=== PATIENT | female | born 1950 | race Caucasian/White ===

== ENCOUNTER 2020-04-16 11:44 | Day surgery (SDC) | payer MEDICARE, SELFPAY ==
[2020-04-10 14:57] VITALS: BMI 29.0
--- NOTE | 2020-04-15 09:20 | HO.ANESPROP2 ---
Documented by User: Patricia Sharma 04/15/20 09:22 HPI - Anesthesia Eval Consult details Narrative: 69yo F for Colonoscopy [facility] Past Medical History Medical History History of epigastric pain Hypothyroid Surgical History Surgical History Hx of appendectomy Hx of dilation and curettage Hx of release of tendon Hx of thyroidectomy Hx of tubal ligation Social History Social History Smoking Status: Unknown if ever smoked Use of substances other than those prescribed or required for medical reasons: No Advance Directives: No Advance Directives Information Provided: No Advance Directives on File: No Meds Allergies Allergy/AdvReac Type Severity Reaction Status Date / Time No Known Allergies Allergy Verified 04/10/20 14:54 Home Medications Medication Instructions Recorded Confirmed Type ascorbic acid (vitamin C) [Vitamin 500 mg PO DAILY 04/10/20 04/16/20 History C] aspirin [Aspir-81] 81 mg PO DAILY 04/10/20 04/10/20 History cetirizine [Zyrtec] 10 mg PO DAILY 04/10/20 04/10/20 History cholecalciferol (vitamin D3) 50 mcg PO DAILY 04/10/20 04/10/20 History [Vitamin D3] famotidine [Pepcid] 20 mg PO BEDTIME 04/10/20 04/10/20 History levothyroxine 150 mcg PO DAILY 04/10/20 04/10/20 History Exam Exam Date and Time: April 15, 2020 0920 Height,Weight and Vital Signs: Height 5 ft 1 in Weight 69.853 kg Assessment and Plan Assessment Anesthesia Assessment: Chart Reviewed Documented by User: Aminata Felder 04/16/20 12:36 [facility] Past Medical History Medical History History of epigastric pain Hypothyroid Surgical History Surgical History Hx of appendectomy Hx of dilation and curettage Hx of release of tendon Hx of thyroidectomy Hx of tubal ligation Social History Social History Smoking Status: Unknown if ever smoked Use of substances other than those prescribed or required for medical reasons: No Advance Directives: No Advance Directives Information Provided: No Advance Directives on File: No Meds Allergies Allergy/AdvReac Type Severity Reaction Status Date / Time No Known Allergies Allergy Verified 04/10/20 14:54 Home Medications Medication Instructions Recorded Confirmed Type ascorbic acid (vitamin C) [Vitamin 500 mg PO DAILY 04/10/20 04/16/20 History C] aspirin [Aspir-81] 81 mg PO DAILY 04/10/20 04/10/20 History cetirizine [Zyrtec] 10 mg PO DAILY 04/10/20 04/10/20 History cholecalciferol (vitamin D3) 50 mcg PO DAILY 04/10/20 04/10/20 History [Vitamin D3] famotidine [Pepcid] 20 mg PO BEDTIME 04/10/20 04/10/20 History levothyroxine 150 mcg PO DAILY 04/10/20 04/10/20 History Exam Airway Mallampati Class: II TM Dist: >3cm Neck ROM: Full Heart: RRR Lungs: CTa BL Assessment and Plan Assessment Anesthesia Assessment: Anesthesia Plan Discussed and Chart Reviewed Final Anesthetic Review NPO: Yes (Sip water with meds) ASA Class: II Final Preanesthetic Review: No Changes in Pt Med Stat and Consent Obtained/Reviewed Patient Risk: Intermediate Procedure Risk: Intermediate Anesthetic Plan Anesthetic Plan: MAC: Disposition: Standard PACU
[2020-04-16 11:53] VITALS: BP 156/81; PULSE 97; RESP 16; TEMP 36.7; O2SAT 95
[2020-04-16] MEDS: Lactated Ringers 1,000 ML 100 ML IVCONT (12:10)
--- NOTE | 2020-04-16 13:01 | MHC.SHP ---
Pre-Procedural Eval Section A The patient is an INPATIENT: No Changes since office visit: No Cold of Flu in the past 2 weeks, No New Medical Problems, No Changes in Medication and No Patient answered all questions The History & Physical has been completed within 30 days and I have reviewed it.: Yes Section B Chief Complaint: screening Allergies: Allergies Allergy/AdvReac Type Severity Reaction Status Date / Time No Known Allergies Allergy Verified 04/10/20 14:54 Plan I have reviewed the history and physical and performed a pertinent physical examination on my patient. No changes have occurred unless specified.
[2020-04-16 13:41] VITALS: BP 104/57; PULSE 71; RESP 12; TEMP 36.6; O2SAT 97
--- NOTE | 2020-04-16 13:41 | PM.OP ---
Brief Operative Note Date of Service: 04/16/20 Pre-op diagnosis: hx tubular adenomas Post-op diagnosis: same (same, colon polyps) Procedure: colonoscopy Surgeon: Cesar Rivera Anesthesia: MAC Estimated blood loss (mL): 5 Pathology: other (r colon polyps, polyp 60 cm) Condition: stable Disposition: PACU
[2020-04-16 13:56] VITALS: BP 100/67; PULSE 71; RESP 16; TEMP 36.6; O2SAT 97
--- NOTE | 2020-04-16 14:07 | HO.POSTANES ---
Post Anesthesia Evaluation Post Anesthesia Evaluation Vital Signs: Vital Signs Temp Pulse Resp BP Pulse Ox 04/16/20 13:56 97.8 F 71 16 100/67 97 04/16/20 13:41 97.8 F 71 12 104/57 L 97 04/16/20 11:53 98.0 F 97 16 156/81 H 95 Anesthesia: Monitored Mental Status: Awake Nausea/Vomiting: None Hydration: Adequate Anesthesia-Related Issues: No Anes. Related Issues
--- NOTE | 2020-04-16 16:46 | OP_ITS ---
SURGEON: Cesar Rivera MD INDICATIONS: Colon cancer screening and prior history of tubular adenomas. PREOPERATIVE DIAGNOSIS: POSTOPERATIVE DIAGNOSIS: PROCEDURE PERFORMED: Colonoscopy to the cecum with biopsy and snare polypectomy. ESTIMATED BLOOD LOSS: COMPLICATIONS: ANESTHESIA: ASSISTANTS: SPECIMENS: MEDICATIONS: Monitored anesthesia care. DESCRIPTION OF PROCEDURE: History and physical performed. The risks and benefits of the procedure were explained to the patient. Informed consent was obtained. The patient was placed in the left lateral decubitus position. A digital rectal exam was performed and was found to be normal. The Olympus pediatric video colonoscope was introduced into the rectum and advanced to the cecum without difficulty. The cecum was identified by transillumination, palpation, and identification of ileocecal valve. Examination was performed and the scope was removed. She tolerated the procedure well and was taken to recovery area in stable condition. FINDINGS: The terminal ileum was not examined. The visualized colonic mucosa was normal. The quality of the prep was good. Two polyps measuring less than 5 mm in the right colon removed with biopsy forceps. The 3rd polyp at 60 cm was removed with a snare and recovered via suction. No other polyps were identified. There was mild sigmoid diverticulosis. Retroflexed examination was normal. Small internal hemorrhoids were identified. IMPRESSION: Colon polyps. RECOMMENDATIONS: 1. Follow up biopsy results. 2. Repeat colonoscopy is recommended for 3 to 5 years pending pathology. MD RACHEL Kyle/DOMO / [id number]
== END 2020-04-16 14:29 | disposition home or self-care (01) ==
PROVIDERS: PCP Internal Medicine; Visit Provider Internal Medicine Gastroenterology
PROC: 0DJD8ZZ Inspection of Lower Intestinal Tract, Via Natural or Artificial Opening Endoscopic (ICD-10-PCS; CPT 45378; principal; 2020-04-16 13:20)
DX: Z12.11 Encounter for screening for malignant neoplasm of colon (principal); Z86.010 Personal history of colon polyps; Z80.0 Family history of malignant neoplasm of digestive organs; Z83.71 Family history of colonic polyps; D12.2 Benign neoplasm of ascending colon; D12.4 Benign neoplasm of descending colon; K57.30 Diverticulosis of large intestine without perforation or abscess without bleeding; K64.8 Other hemorrhoids; Z98.51 Tubal ligation status; Z79.82 Long term (current) use of aspirin; Z79.899 Other long term (current) drug therapy
CPT/HCPCS: 45385; 45380; 88305

== ENCOUNTER 2021-12-03 13:14 | Outpatient (REF) | payer MEDICARE, SELFPAY ==
[2021-12-03 14:12] LABS: Hematocrit 41.5 % (37.0-47.0); Hemoglobin 13.9 g/dl (12.0-16.0); Mean Corpuscular HGB Conc 33.5 g/dl (31.0-35.0); Mean Corpuscular Hemoglobin 30.8 pg (27.0-33.0); Mean Corpuscular Volume 91.8 fL (80.0-98.0); Platelet Count 320 X10*3/uL (160-400); Red Blood Count 4.52 X10*6/uL (4.20-5.50); White Blood Count 7.4 X10*3/uL (4.8-10.8)
[2021-12-03 14:39] LABS: Iron 77 mcg/dL (30-160); Percent Iron Saturation 23 % (15-50); Total Iron Binding Capacity 339 mcg/dL (228-428); Unsaturated Iron Binding 262 ug/dL
[2021-12-03 15:01] LABS: Ferritin 36 ng/mL (10-250)
== END 2021-12-03 13:15 | disposition home or self-care (01) ==
LOC: HO.LAB 13:14
PROVIDERS: PCP Internal Medicine; Visit Provider Internal Medicine Gastroenterology
DX: E61.1 Iron deficiency (principal)
CPT/HCPCS: 36415; 82728; 83540; 85027

== ENCOUNTER 2024-12-18 10:05 | Day surgery (SDC) | payer MEDICARE, SELFPAY ==
--- OUTSIDE RECORDS SUMMARY | 2024-12-05 14:35 | XMS_ITS | Clinical Summary ---
Author Organization [facility] Address [address] [facility] [place] [address] Care Team Providers Care Candy Attendant Name Role Phone Prasanna Rolon CERTIFIED APPLIANCE SERVICE TECHNICIAN Primary Care Provider [phone] Immunizations Name Administration Dates Next Due Fluad Quadrivalent High Dose (65+ years) 023 Social History Tobacco Use Types Packs/Day Years Used Date Smoking Tobacco: Never Assessed Comments Unknown Sex and Gender Information Value Date Recorded Sex Assigned at Not on file Legal Sex Female 2:39 PM EDT Gender Identity Not on file Sexual Orientation Not on file Plan of Treatment Health Maintenance Due Date Last Done Comments Colorectal Cancer: COLONOSCO PY Screening every 10 yrs (or Modifier) 1952 Depression: Screening Annual ly using PHQ-2/9 in Adults 18 yrs or above (or HM Modifier)([facility]) 1970 Hepatitis C Virus Infection in Adolescents and Adults: Screening (or Modifier) ([facility]) 1970 SDOH Screening Reminder: Gloria covington for all adults ([facility]) 1970 Tobacco Smoking Cessation: i n Adults excluding Women: Behavioral and Pharmacotherapy Interventions ([facility]) 1970 DTaP/Tdap/Td Vaccines ([facility]) (1 - Tdap) 08/29/1971 Colorectal Cancer Screening 45 -75 Yrs (or HM Modifier) 1997 Colorectal Cancer: FLEXIBLE SIGMOIDOSCOPY Screening every 5 yrs 1997 Colorectal Cancer: Fecal Imm unochemical Test (FIT) Annually [facility] 1997 Colorectal Cancer: High-sens itivity gFOBT Screening Annually [facility] 1997 Colorectal Cancer: Stool Col oguard Screening every 3 yrs 1997 Colorectal Cancer:CT Colonog ara Screening every 5 yrs 1997 Breast Cancer: Screening Gloria ually age 50-74 yrs (or HM Modifier)([facility]) 2002 Pneumococcal Vaccination Scr eening: Patients 50+ yrs of age ([facility]) (1 of 1 - PCV) 2002 Zoster/Shingles Vaccine Seri es Screening: Adults aged 18+ yrs (or HM Modifiers)([facility]) (1 of 2) 2002 Osteoporosis Screening to Pr event Fractures: Women aged 65 years+ ([facility]) 2017 Flu Vaccination: Ages 65+: Y early High Dose Recommended (or Modifier)([facility]) 11/02/2024 12/03/2022 COVID-19 Vaccine Screening: Initial Series and Booster Status ([facility]) ( - 2023- season) 2024 RSV Vaccines (1 - 1-dose 75+ series) 08/29/2027 Medical Devices Not on file Insurance [facility] MEDICARE Care Teams Candy Attendant Relationship Specialty Start Date End Date Prasanna Rolon NP [address] [place] [address] PCP - General Family Medicine 12/03/22
--- OUTSIDE RECORDS SUMMARY | 2024-12-05 14:37 | XMS_ITS | Clinical Summary ---
Author Organization [facility] Address [address] [place] [id number] Phone Care Team Providers Care Superintendent Of Schools Name Role Phone Prasanna Rolon NP Primary Care Provider [phone] Allergies No known active allergies Medications aspirin 81 MG EC tablet Active levothyroxine (SYNTHROID) 150 MCG tablet Take 1 tablet (150 mcg total) by mouth every morning. 90 tablet 3 08/23/2022 Active famotidine (PEPCID) 20 MG tablet Take 1 tablet (20 mg total) by mouth daily as needed. 90 tablet 3 11/18/2022 Active Active Problems Problem Noted Date Diagnosed Date Routine general medical exam ination at a health care facility 05/06/2022 Assessment & Plan (05/06/2022 10:38 AM EST): All USPSTF Age Appropriate Recommendations reviewed See wrap up Hypothyroidism 05/06/2022 Assessment & Plan (05/06/2022 10:38 AM EST): Unclear if stable, check lab Need for hepatitis C screening test 05/06/2022 History of anemia 05/06/2022 Assessment & Plan (05/06/2022 10:39 AM EST): I need to get a copy of Hematology's last OV To figure out where we are with this Vitamin D deficiency 05/06/2022 Assessment & Plan (05/06/2022 10:39 AM EST): Unclear if stable, check lab Family History Relation Status Comments Father Mother Social History Tobacco Use Types Packs/Day Years Used Date Smoking Tobacco: Never Smokeless Tobacco: Never Tobacco Cessation:Counseling Given: Not Answered Alcohol Use Standard Drinks/Week Comments Yes 1 (1 standard drink = 0.6 oz pur e alcohol) Education Answer Date Recorded Are you interested in more education? Not on xiomara e 07/31/2022 Are you concerned about learning? Not on file 07/31/2022 No 07/31/2022 No 07/31/2022 Digital Access Answer Date Recorded No 08/29/2022 No 08/29/2022 No 08/29/2022 Reliable internet access at home? Not on file 08/29/2022 Device with a working camera? Not on file Intimate Partner Violence Answer Date R ecorded Denied Basic Needs Not on file 05/02/2022 In the past 12 months have y ou been in a relationship with a person who hurts, threatens, or tries to control you? No 05/02/2022 Worried food would run out Not on file 05/02 In the past 12 months have y ou been in a relationship with a person who hurts, threatens, or tries to control you? No 05/02/2022 Comments Unknown Sex and Gender Information Value Date Recorded Sex Assigned at Female 11/08/2021 11:44 PM EDT Legal Sex Female 11:14 AM EDT Gender Identity Female 11/08/2021 11:44 PM EDT Sexual Orientation Straight 11/08/2021 11 :44 PM EDT Last Filed Vital Signs Vital Sign Reading Time Taken Comments Blood Pressure 130/82 05/06/2022 9:58 AM EST Pulse 69 05/06/2022 9:58 AM EST Temperature 36.9 C (98.5 F) 05/06/2022 9:58 AM EST Respiratory Rate - - Oxygen Saturation 99% 05/06/2022 9:58 AM EST Inhaled Oxygen Concentration - - Weight 64.4 kg (142 lb) 05/06/2022 9:58 AM EST Height 154.9 cm (5' 1 ) 05/06/2022 9:58 AM EST Body Mass Index 26.83 05/06/2022 9:58 AM EST Plan of Treatment Health Maintenance Due Date Last Done Comments COLOGUARD 1997 COLONOSCOPY 1997 COLORECTAL CANCER SCREENING 1997 FIT TEST 1997 FOBT 1997 SIGMOIDOSCOPY 1997 VIRTUAL COLONOSCOPY 1997 DEPRESSION SCREENING 05/02/2023 05/02/2022 TSH LEVEL 05/10/2023 05/10/2022 MAMMOGRAM 05/06/2024 05/06/2022 INFLUENZA VACCINE (#1) 2024 2, 01/06/2021, 01/16/2020, Additional history exists COVID-19 VACCINE ( season) 2024 12/15/2021, 01/09/2021, 07/08/2020 LIPID PANEL 05/10/2027 05/10/2022 RSV VACCINE (1 - 1-dose 75+ series) 08/29/2027 Adult Td,Tdap Booster 09/10/2030 09/10/2020 PNEUMOCOCCAL VACCINES (50+ years) Completed 12/29/2018, 11/07/2017 ZOSTER VACCINES Completed 03/19/2019, 12/29/2018 OSTEOPOROSIS SCREENING INITIAL (ONE-TIME) Completed 05/06/2022 SMOKING STATUS SCREENING (Once After 26 Yrs) Completed 05/06/2022 HEPATITIS C SCREENING Completed 05/10/2022 HEPATITIS A VACCINES Aged Out No long er eligible based on patient's age to complete this topic HIB VACCINES Aged Out No longer eligi ble based on patient's age to complete this topic MENINGOCOCCAL VACCINES (ACWY) Aged Out No longer eligible based on patient's age to complete this topic MENINGOCOCCAL VACCINES (B) Aged Out N o longer eligible based on patient's age to complete this topic Medical Devices Not on file Procedures Procedure Name Priority Date/Time Associated Diagnosis Comments LIPID PANEL Routine 05/10/2022 8:23 AM EST Routine general medical examination at a health care facility HEPATITIS C ANTIBODY, QUALITATIVE Routine 05/10/2022 8:23 AM EST Need for hepatitis C screening test TSH WITH REFLEX Routine 05/10/2022 8:23 AM EST Hypothyroidism, unspecified type BI MAMMOGRAM SCREENING (BILATERAL) Routine 05/06/2022 10:31 AM EST Routine general medical examination at a health care facility BD DXA SCREENING Routine 05/06/2022 10:3 1 AM EST Postmenopausal from Last 3 Months or Most Recently Relevant to Health Maintenance Results * TSH with reflex (05/10/2022 8:23 AM EST) TSH 0.34 0.27 - 4.20 uIU/mL [facility] Blood 05/10/2022 8:23 AM EST 05/10/2022 8:26 AM EST Paula Briscoe MD LAB BLOOD ORDERABLES Final R esult Performing Organization Address City/[facility]/ZIP Co de Phone Number [address] [address] * Hepatitis C antibody, qualitative (05/10/2022 8:23 AM EST) HCV NON-REACTIV E NON-REACTI VE [facility] Blood 05/10/2022 8:23 AM EST 05/10/2022 8:26 AM EST Paula Briscoe MD LAB BLOOD ORDERABLES Final R esult Performing Organization Address City/[facility] Co de Phone Number [address] [address] * (ABNORMAL) Lipid panel (05/10/2022 8:23 AM EST) HDL 73 mg/dL [facility] Comment: Interpretation <40 mg/dL: Low HDL cholesterol (major risk factor for CHD) Greater than or equal to 60 mg/dL: High HDL cholesterol ( negative risk factor for CHD) HDL - cholesterol is affected by a number of factors, e.g. smoking, excerise, hormones, sex and age. CHOLESTEROL 207 0 - 240 mg/dL [facility] TRIGLYCERIDES 94 30 - 160 mg/dL [facility] LDL 115 50 - 129 mg/dL [facility] Comment: LDL levels in terms of risk for coronary heart disease: <100 mg/dL: Optimal 100-129 mg/dL: Near or above optimal 130-159 mg/dL: Borderline high 160-189 mg/dL: High >190 mg/dL: Very High CARDIAC RISK RATIO 2.8(L) 3.3 - 4.4 C [facility] Blood 05/10/2022 8:23 AM EST 05/10/2022 8:26 AM EST us Paula Briscoe MD LAB BLOOD ORDERABLES Final R esult [address] [address] from Last 3 Months or Most Recently Relevant to Health Maintenance Insurance MEDICARE PPO BLUE REPLACEMENT MEDICARE PPO [place]UE [place] [address] [place] [address] [address] [place] [address] [place] [address] MEDICARE PPO BLUE RE[place]AC[place] MEDICARE PPO BLUE REPLACEMENT Care Teams Superintendent Of Schools Relationship Specialty Start Date End Date Prasanna Rolon NP [address] [place] [id number] PCP - General Nurse Practitioner 12/01/22 Additional Source Comments The information contained in this document represents components of the legal health record. It is not the complete legal health record.[facility]
[2024-12-14 15:13] VITALS: BMI 26.6
--- NOTE | 2024-12-17 09:34 | HO.ANESPROP2 ---
Documented by User: Patricia Sharma NP 12/17/24 09:35 HPI - Anesthesia Eval Consult details Narrative: 74yo F for Upper Endoscopy and Colonoscopy [facility] Past Medical History Medical History History of epigastric pain Hypothyroid Surgical History Surgical History Hx of colonoscopy (04/2020) Hx of dilation and curettage Hx of release of tendon Hx of tubal ligation Hx of appendectomy Hx of thyroidectomy Social History Social History Are you a primary critical care physician to a significant other at home: No Do you presently have visiting nurse or other home services: No Patient Tobacco Use Status: Never used Tobacco Second Hand Smoke Exposure: No Meds Allergies Allergy/AdvReac Type Severity Reaction Status Date / Time No Known Allergies Allergy Verified 04/10/20 14:54 Home Medications ?Medication ?Instructions ?Recorded ?Confirmed ?Last Taken ?Type ascorbic acid (vitamin C) 500 mg 500 mg PO DAILY 04/10/20 12/18/24 04/15/20 History tablet (Vitamin C) cetirizine 10 mg tablet (Zyrtec) 10 mg PO DAILY 04/10/20 12/18/24 Unknown History cholecalciferol (vitamin D3) 50 50 mcg PO DAILY 04/10/20 12/18/24 Unknown History mcg (2,000 unit) capsule (Vitamin D3) famotidine 20 mg tablet (Pepcid) 20 mg PO BEDTIME 04/10/20 12/18/24 Unknown History levothyroxine 137 mcg tablet 137 mcg PO DAILY 12/14/24 12/18/24 Unknown History Exam Height,Weight and Vital Signs: Height 5 ft 1 in Weight 63.957 kg Assessment and Plan Assessment Anesthesia Assessment: Chart Reviewed Documented by User: Divina Villagran MD 12/18/24 13:03 [facility] Past Medical History Medical History History of epigastric pain Hypothyroid Functional capacity: wheelchair bound Surgical History Surgical History Hx of colonoscopy (04/2020) Hx of dilation and curettage Hx of release of tendon Hx of tubal ligation Hx of appendectomy Hx of thyroidectomy History of Problems with Anesthesia: No Social History Social History Are you a primary critical care physician to a significant other at home: No Do you presently have visiting nurse or other home services: No Patient Tobacco Use Status: Never used Tobacco Second Hand Smoke Exposure: No Meds Allergies Allergy/AdvReac Type Severity Reaction Status Date / Time No Known Allergies Allergy Verified 04/10/20 14:54 Home Medications ?Medication ?Instructions ?Recorded ?Confirmed ?Last Taken ?Type ascorbic acid (vitamin C) 500 mg 500 mg PO DAILY 04/10/20 12/18/24 04/15/20 History tablet (Vitamin C) cetirizine 10 mg tablet (Zyrtec) 10 mg PO DAILY 04/10/20 12/18/24 Unknown History cholecalciferol (vitamin D3) 50 50 mcg PO DAILY 04/10/20 12/18/24 Unknown History mcg (2,000 unit) capsule (Vitamin D3) famotidine 20 mg tablet (Pepcid) 20 mg PO BEDTIME 04/10/20 12/18/24 Unknown History levothyroxine 137 mcg tablet 137 mcg PO DAILY 12/14/24 12/18/24 Unknown History Exam Airway Mallampati Class: II TM Dist: >3cm Neck ROM: Full Loose/Missing/Broken Teeth: No Heart: RRR Lungs: CTA Assessment and Plan Assessment Anesthesia Assessment: Anesthesia Plan Discussed Final Anesthetic Review History of Problems with Anesthesia: No NPO: Yes ASA Class: II Final Preanesthetic Review: Meds/Allgs Chart Reviewed, Consent Obtained/Reviewed and Anes Risks/Benef Reviewed Patient Risk: Low Procedure Risk: Intermediate Anesthetic Plan Anesthetic Plan: MAC: Disposition: Standard PACU
[2024-12-18 11:23] VITALS: BP 141/69; PULSE 75; RESP 16; TEMP 36.1; O2SAT 97
[2024-12-18] MEDS: Lactated Ringers 1,000 ML 100 ML IVCONT (11:39)
--- NOTE | 2024-12-18 13:00 | MHC.SHP ---
Pre-Procedural Eval Section A - 24 Hr Update-Section A only Date of Service: 12/18/24 The patient is an INPATIENT: No Changes since office visit: No Cold of Flu in the past 2 weeks, No New Medical Problems, No Changes in Medication and No Patient answered all questions The patient has been examined within 24 hours of the surgical procedure. The History & Physical has been completed within 30 days and I have reviewed it.: Yes Section B - Complete if H&P > 30 days Chief Complaint: screening,epigastric pain,hx adenomatous polyps Allergies: Allergies Allergy/AdvReac Type Severity Reaction Status Date / Time No Known Allergies Allergy Verified 04/10/20 14:54 Plan I have reviewed the history and physical and performed a pertinent physical examination on my patient. No changes have occurred unless specified. Time Spent With Patient Time: Total time managing care of this patient today ____ minutes.
[2024-12-18 13:49] VITALS: BP 106/55; PULSE 63; RESP 12; TEMP 36.1; O2SAT 97
--- NOTE | 2024-12-18 14:03 | OP_ITS ---
DATE OF SERVICE: 12/18/2024 SURGEON: Cesar Rivera MD INDICATIONS: Epigastric pain and colon cancer screening as well as personal history of colon polyps. PREOPERATIVE DIAGNOSIS: POSTOPERATIVE DIAGNOSIS: PROCEDURE PERFORMED: Upper endoscopy with biopsy, colonoscopy to the cecum with biopsy. ESTIMATED BLOOD LOSS: COMPLICATIONS: ANESTHESIA: Monitored anesthesia care. ASSISTANTS: SPECIMENS: DESCRIPTION OF PROCEDURE: A history and physical was performed. The risks and benefits of the procedure were explained to the patient. Informed consent was obtained. The patient was placed in the left lateral decubitus position. The Olympus video gastroscope was introduced into the esophagus, stomach, and duodenum. Examination was performed. The scope was removed. She was repositioned for colonoscopy. A digital rectal exam was performed and was found to be normal. The Olympus pediatric video colonoscope was introduced into the rectum and advanced to the cecum. The cecum was identified by transillumination, palpation, and identification of ileocecal valve. Examination was performed. The scope was removed. She tolerated both procedures well. She returned to the recovery area in stable condition. FINDINGS: Upper endoscopy: 1. Esophagus: The esophagus was normal. There was an 8 cm hiatal hernia. 2. Stomach: The stomach showed no evidence of masses, ulcers, or polyps. 3. Duodenum: The bulb and 2nd portion were normal. Biopsies were obtained from the upper GI tract. Colonoscopy: The terminal ileum was not examined. The visualized colonic mucosa was normal. The quality of the prep was good. No polyps were identified. Retroflexed examination was normal. Random sigmoid biopsies were obtained to rule out microscopic colitis. There was no evidence of colitis. Endoscopically, there were internal hemorrhoids. IMPRESSION: 1. Hiatal hernia. 2. Normal colonoscopy. RECOMMENDATION: Follow up the biopsy results. MD RACHEL Kyle/DOMO / [id number]
[2024-12-18 14:04] VITALS: BP 136/66; PULSE 66; RESP 18; TEMP 36.6; O2SAT 99
== END 2024-12-18 14:39 | disposition home or self-care (01) ==
PROVIDERS: PCP Nurse Practitioner Family; Visit Provider Internal Medicine Gastroenterology
PROC: (CPT 45380; principal; 2024-12-18 13:00)
DX: Z12.11 Encounter for screening for malignant neoplasm of colon (principal); K64.8 Other hemorrhoids; Z86.0101 Personal history of adenomatous and serrated colon polyps; Z83.719 Family history of colon polyps, unspecified; Z80.0 Family history of malignant neoplasm of digestive organs; R10.13 Epigastric pain; K44.9 Diaphragmatic hernia without obstruction or gangrene; R68.81 Early satiety; E03.9 Hypothyroidism, unspecified; Z79.899 Other long term (current) drug therapy
CPT/HCPCS: 45380; 43239; 88305; 88313; 88342; J2003; J2704